=== PATIENT | female | born 1935 | race Caucasian/White ===

== ENCOUNTER 2017-04-10 08:39 | Emergency (ER) | payer MEDICARE, OTHER ==
[~2017-04-10] VITALS: Ht 157.5 cm; Wt 75.1 kg
[~2017-04-10 08:39] MED LIST: ATOR40TA68 PO; CALC500T12 PO; CIPR500T4 PO; GLIP5TAB13 PO; METO-448 PO; NIFE30TA PO; PIOG15TA12 PO
[2017-04-10 08:42] VITALS: Ht 157.5 cm; Wt 75.1 kg
--- NOTE | 2017-04-10 09:35 | ERD ---
ER Documentation Chief Complaint Chief Complaint cough , cold , body ache , fever x 3 days HPI 81-year-old female, with history of hypertension, diabetes, presents to the emergency department complaining of worsening upper respiratory symptoms during the last 3 days. The symptoms include persistent productive cough of greenish sputum, associated with chest congestion, runny nose, body aches and general malaise. The patient has been taking [id number] medication without improvement of the symptoms. She also complaints of subjective fever at home. Denies chills, shortness of breath, chest pain, palpitations, dizziness. ROS A 12-point review of systems was performed and negative other than presented in the history of present illness. SYSTEMIC symptoms: no fever, chills, no night sweats, no weight loss EYE symptoms: No blurred vision, no eye discharge OTOLARYNGEAL symptoms: No hearing loss. No ear pain, no sore throat CARDIOVASCULAR symptoms: No chest pain or discomfort, no palpitations. PULMONARY symptoms: No dyspnea, no cough, no wheezing. GASTROINTESTINAL symptoms: No abdominal pain, no nausea, no vomiting, no diarrhea MUSCULOSKELETAL symptoms: No arthralgias, no muscle aches. NEUROLOGY symptoms: No confusion, no syncope, no numbness or tingling. SKIN: No rashes Medications Home Meds Active Scripts Guaifenesin-Codeine Phosphate* (Guaifenesin* AC Cough Syrup) 473 Ml Liquid, 5 ML PO QHS Y for COUGH for 5 Days, #120 ML Prov:SANJUANITA DUKE MD 04/10/17 Amoxicillin* (Amoxicillin*) 500 Mg Cap, 500 MG PO TID for 7 Days, CAP Prov:SANJUANITA DUKE MD 04/10/17 Ciprofloxacin Hcl* (Ciprofloxacin Hcl*) 500 Mg Tablet, 500 MG PO BID for 7 Days , TAB Prov:STEPHANIE CHIN 04/13/16 Reported Medications Glipizide* (Glipizide*) 5 Mg Tablet, 2.5 MG PO DAILY, TAB 04/18/16 Atorvastatin* (Atorvastatin*) 40 Mg Tablet, 40 MG PO daily 09/24/12 Nifedipine* (Afeditab CR*) 30 Mg Tablet.sa, 30 MG PO BID 11/22/10 Calcium Carbonate* (Oysco-500*) 1 Tab Tablet, 1 TAB PO TID 11/22/10 Metoprolol Tartrate* (Lopressor*) 25 Mg Tab, 25 MG PO BID 11/22/10 Pioglitazone Hcl* (Actos*) 15 Mg Tablet, 15 MG PO DAILY 11/22/10 Allergies Allergies: Coded Allergies: No Known Allergy (Verified , 04/18/16) PMhx/Soc History of Surgery: Yes (gallbladder removed 20 years ago) Anesthesia Reaction: No Hx Neurological Disorder: Yes (CVA) Hx Respiratory Disorders: No Hx Cardiac Disorders: Yes (HTN, high cholesterol) Hx Psychiatric Problems: No Hx Miscellaneous Medical Probl: Yes (DM) Hx Alcohol Use: No Hx Substance Use: No Hx Tobacco Use: Yes Smoking Status: Never smoker Physical Exam Vitals Vital Signs Date Time Temp Pulse Resp B/P Pulse Ox O2 Delivery O2 Flow Rate FiO2 04/10/17 08:42 97.1 90 18 178/90 97 Physical Exam Patient is in no acute distress, vital signs stable. Alert and fully oriented. EYES: PERRLA, EOMI, Sclera and conjunctiva appear normal. EARS: Canals clear, tympanic membranes WNL THROAT: Normal oropharynx. NECK: Supple, No lymphadenopathy. Full ROM without pain or tenderness. HEART: RRR, no rubs, murmurs, clicks or gallops. LUNGS: Productive cough here, bilateral rhonchi ABDOMEN: Soft, non-tender without masses or hepatosplenomegaly. EXTREMITIES: No edema bilaterally. BACK: Full ROM, no deformity, normal back exam NEURO: Cranial nerves grossly intact, no motor or sensory deficit Procedures/MDM 81-year-old female, with history of hypertension and diabetes, presents with worsening of respiratory symptoms. Vital signs stable, Physical exam revealed bilateral rhonchi Differential diagnosis include but not limited to: Respiratory infection bacterial/viral/fungal. Asthma/COPD, pneumonitis, allergies, GERD. Less likely pulmonary embolism, foreign body aspiration, cardiac related, aspiration pneumonia, malignancy. Physical examination and clinical presentation consistent most likely with bronchitis During the ED course the patient remained stable, no new complaints. Results and clinical impression discussed with patient who agrees with management. The patient is stable to be treated outpatient and will be discharged home with a Rx for amoxicillin for 7 days and guaifenesin with codeine, some side effects of prescribed medications (headache, rash, nausea, vomiting, diarrhea, drowsiness, habituation, bleeding, hypertension, interactions with other medications) were reviewed. The patient was instructed to follow up with the primary care provider in the next 48h. If symptoms persist, worsen or new symptoms develop, then patient should return to the ED immediately. Instructions explained and given directly by me to the patient in Tristanian with acknowledgment and demonstrated understanding. Disclaimer: Inadvertent spelling and grammatical errors are likely due to EHR/ dictation software use and do not reflect on the overall quality of patient care. Also, please note that the electronic time recorded on this note does not necessarily reflect the actual time of the patient encounter. Departure Diagnosis: Primary Impression: Cough Additional Impression: Abnormal respiratory sounds Additional Instructions: Muchas trudi por [facility] para justin servicio. Esperamos que en justin visita a la alyssa de emergencia justin problema medico haya sido solucionado y que se sienta mucho mejor. Para estar seguros que justin mejoria sigue en proceso, le pedimos el favor de hacer cal bear de seguimiento medico con justin doctor primario en los proximos 2-4 jeffrey. Lleve con usted estos documentos y las medicinas recetadas. Si lo sintomas empeoran y no puede caleb a justin doctor, por favor regrese a alyssa de emergencia. En maria que usted no tenga un mdico de atencin primaria: Llame al mdico o clnica comunitaria de referencia que aparece abajo melinda las horas de consultorio para hacer cal bear para que le vean. CLINICAS: [facility] [phone] [facility] [phone] [facility] [phone] [facility] [id number] [place] [id number] [phone] [facility]. [phone] SANJUANITA HENSON MD Apr 10, 2017 09:35
[2017-04-10] MEDS ORDERED: GUAI473L22 PO (09:37)
[2017-04-10] MEDS ORDERED: AMOX500C2 PO (09:37)
== END 2017-04-10 09:56 | disposition home or self-care (01) ==
LOC: FTE 08:39
DX: R05 Cough (principal); R06.89 Other abnormalities of breathing; I10 Essential (primary) hypertension; E11.9 Type 2 diabetes mellitus without complications; Z79.84 Long term (current) use of oral hypoglycemic drugs; Z87.891 Personal history of nicotine dependence
CPT/HCPCS: 99283

== ENCOUNTER 2018-10-21 14:52 | Emergency (ER) | payer MEDICARE, OTHER ==
[~2018-10-21] VITALS: Ht 160 cm; Wt 67.3 kg
[~2018-10-21 14:52] MED LIST changes: +AMOX500C2 PO; +GUAI473L22 PO; -NIFE30TA PO; +NIFE30TA29 PO
[2018-10-21 14:57] VITALS: Ht 160 cm; Wt 67.3 kg
--- NOTE | 2018-10-21 15:22 | ERD ---
ER Documentation Chief Complaint Chief Complaint DIZZINESS, FATIGUE, DECREASED APPETITE X4 DAYS HPI This is an 83-year-old woman complaining of a few days of dizziness, generalized weakness, decreased appetite. Patient denies vomiting or diarrhea, no hematuria, no complaints of chest pain or shortness of breath, no loss of consciousness, no weakness in her arms or legs, no slurred speech. ROS All systems reviewed and are negative except as per history of present illness. Medications Home Meds Active Scripts Ondansetron Hcl* (Zofran*) 4 Mg Tablet, 4 MG PO Q8H PRN for NAUSEA AND/OR VOMITING, #30 TAB Prov:GEGE LINDSEY MD 10/21/18 Cephalexin* (Keflex*) 500 Mg Capsule, 500 MG PO QID for 5 Days, CAP Prov:GEGE LINDSEY MD 10/21/18 Reported Medications Pioglitazone Hcl* (Actos*) 15 Mg Tablet, 15 MG PO DAILY, #30 TAB 10/21/18 Nifedipine* (Afeditab CR*) 30 Mg Tablet.sa, 30 MG PO BID, #30 TAB.SA 10/21/18 Metoprolol Tartrate* (Lopressor*) 25 Mg Tab, 25 MG PO BID, #60 TAB 10/21/18 Glipizide* (Glipizide*) 5 Mg Tablet, 10 MG PO BID, TAB 10/21/18 Atorvastatin* (Atorvastatin*) 40 Mg Tablet, 40 MG PO QHS, #30 TAB 10/21/18 Discontinued Reported Medications Glipizide* (Glipizide*) 5 Mg Tablet, 2.5 MG PO DAILY, TAB 04/18/16 Atorvastatin* (Atorvastatin*) 40 Mg Tablet, 40 MG PO daily 09/24/12 Nifedipine* (Afeditab CR*) 30 Mg Tablet.sa, 30 MG PO BID 11/22/10 Calcium Carbonate* (Oysco-500*) 1 Tab Tablet, 1 TAB PO TID 11/22/10 Metoprolol Tartrate* (Lopressor*) 25 Mg Tab, 25 MG PO BID 11/22/10 Pioglitazone Hcl* (Actos*) 15 Mg Tablet, 15 MG PO DAILY 11/22/10 Discontinued Scripts Guaifenesin-Codeine Phosphate* (Guaifenesin* AC Cough Syrup) 473 Ml Liquid, 5 ML PO QHS PRN for COUGH for 5 Days, #120 ML Prov:SANJUANITA DUKE MD 04/10/17 Amoxicillin* (Amoxicillin*) 500 Mg Cap, 500 MG PO TID for 7 Days, CAP Prov:SANJUANITA DUKE MD 04/10/17 Ciprofloxacin Hcl* (Ciprofloxacin Hcl*) 500 Mg Tablet, 500 MG PO BID for 7 Days, TAB Prov:STEPHANIE CHINYesenia 04/13/16 Allergies Allergies: Coded Allergies: No Known Allergy (Verified , 10/21/18) PMhx/Soc hypertension, diabetes mellitus type 2, hyperlipidemia and non-obstructive coronary artery disease status post cardiac cath and negative lexicon stress History of Surgery: Yes (gallbladder removed 20 years ago) Anesthesia Reaction: No Hx Neurological Disorder: Yes (CVA) Hx Respiratory Disorders: No Hx Cardiac Disorders: Yes (HTN, high cholesterol) Hx Psychiatric Problems: No Hx Miscellaneous Medical Probl: Yes (DM) Hx Alcohol Use: No Hx Substance Use: No Hx Tobacco Use: Yes FmHx Family History: No diabetes Physical Exam Vitals Vital Signs Date Temp Pulse Resp B/P (MAP) Pulse Ox O2 O2 Flow FiO2 Time Delivery Rate 10/21/18 98.0 81 14 150/73 95 Room Air 17:30 (98) 10/21/18 97.5 84 16 162/82 98 14:57 (108) Physical Exam GENERAL: Well-developed, well-nourished, well-hydrated, in no apparent distress, looks nontoxic in appearance HEENT: Moist mucous membranes, pink conjunctiva, no cervical spine tenderness or step-off deformities, no goiter, no jaundice or icterus, extraocular movements intact without pain. No submandibular induration, and no pharyngeal erythema NEURO: Alert and oriented 3, cranial nerves II through XII intact bilaterally, pupils equal round reactive to light, no focal deficits or facial asymmetry, sensation intact distally Strength 5/5 in upper and lower extremities bilat erally CARDIAC: Regular rate and rhythm, no murmurs rubs or gallops LUNGS: Clear bilaterally no wheezing crackles or stridor ABDOMEN: Soft nontender, no guarding, no rigidity, no rebound, no psoas sign no obturator sign. Normoactive bowel sounds SKIN: Warm and dry to touch, no abrasions, contusions, or hematomas, no lacerations, no ecchymosis, no target lesions, and without ulcers EXTREMITIES: No clubbing cyanosis or edema, calves are bilaterally symmetrical, no Homans sign, no popliteal cord sign. Distal pulses equal and bilateral PSYCH: Normal affect without agitation or irritability Result Diagram: 10/21/18 1601 10/21/18 1601 Results 24 hrs Laboratory Tests Test 10/21/18 16:01 10/21/18 16:17 White Blood Count 5.5 10^3/ul Red Blood Count 4.80 10^6/ul Hemoglobin 14.9 g/dl Hematocrit 44.1 % Mean Corpuscular Volume 91.9 fl Mean Corpuscular Hemoglobin 31.0 pg Mean Corpuscular Hemoglobin Concent 33.8 g/dl Red Cell Distribution Width 12.9 % Platelet Count 249 10^3/UL Mean Platelet Volume 11.5 fl Immature Granulocytes % 0.400 % Neutrophils % 63.4 % Lymphocytes % 24.3 % Monocytes % 9.6 % Eosinophils % 1.8 % Basophils % 0.5 % Nucleated Red Blood Cells % 0.0 /100WBC Immature Granulocytes # 0.020 10^3/ul Neutrophils # 3.5 10^3/ul Lymphocytes # 1.3 10^3/ul Monocytes # 0.5 10^3/ul Eosinophils # 0.1 10^3/ul Basophils # 0.0 10^3/ul Nucleated Red Blood Cells # 0.0 10^3/ul Sodium Level 141 mmol/L Potassium Level 3.0 mmol/L Chloride Level 104 mmol/L Carbon Dioxide Level 24 mmol/L Anion Gap 13 Blood Urea Nitrogen 13 mg/dl Creatinine 0.45 mg/dl Est Glomerular Filtrat Rate mL/min mL/min Glucose Level 339 mg/dl Calcium Level 9.3 mg/dl Total Bilirubin 0.7 mg/dl Direct Bilirubin 0.00 mg/dl Indirect Bilirubin 0.7 mg/dl Aspartate Amino Transf (AST/SGOT) 24 IU/L Alanine Aminotransferase (ALT/SGPT) 38 IU/L Alkaline Phosphatase 146 IU/L Troponin I < 0.012 ng/ml Total Protein 7.2 g/dl Albumin 4.0 g/dl Globulin 3.20 g/dl Albumin/Globulin Ratio 1.25 Lipase 80 U/L Urine Color YELLOW Urine Clarity CLOUDY Urine pH 5.0 Urine Specific [place] 1.036 Urine Ketones 1+ mg/dL Urine Nitrite POSITIVE mg/dL Urine Bilirubin NEGATIVE mg/dL Urine Urobilinogen NEGATIVE mg/dL Urine Leukocyte Esterase 2+ Shey/ul Urine Microscopic RBC 48 /HPF Urine Microscopic WBC 31 /HPF Urine Squamous Epithelial Cells MANY /HPF Urine Bacteria MANY /HPF Urine Hemoglobin NEGATIVE mg/dL Urine Glucose 3+ mg/dL Urine Total Protein NEGATIVE mg/dl Current Medications Medications Dose Sig/Chris Start Time Status Last (Trade) Ordered Route PRN Stop Time Admin Dose Reason Admin Sodium 500 ml @ Q1H STAT 10/21/18 DC 10/21/18 Chloride 500 mls/hr IV 15:45 16:14 10/21/18 16:44 Ondansetron 4 mg ONCE STAT 10/21/18 DC 10/21/18 HCl (Zofran IV 15:45 16:14 Inj) 10/21/18 15:50 Ceftriaxone 50 ml @ ONCE ONCE 10/21/18 DC 10/21/18 Sodium 100 mls/hr IVPB 17:00 17:29 10/21/18 17:29 Procedures/MDM IV line was established patient was placed on hand tier rhythm strip revealed a sinus rhythm at about 80 bpm with upright P and T waves. Patient was afebrile EKG performed, read by me revealed a normal sinus rhythm at 77 bpm, normal axis, left ventricular conduction delay QRS duration 108 ms, prolonged QT of 511 ms, no concerning ST elevations or depressions noted CBC and electrolytes are normal, liver function tests were normal, troponin was negative. I administered 1 L normal saline IV and Zofran 4 mg IV for dizziness. Urinalysis was positive for infection I treated her here with ceftriaxone 1 g IV Differential diagnoses considered, included but not limited to acute coronary syndrome, pulmonary embolism, aortic dissection, abdominal aortic aneurysm, sepsis, stroke, meningitis, encephalitis, pneumonia, appendicitis, cholecysti tis, bowel obstruction, pyelonephritis, nephrolithiasis, cystitis, as well as metabolic, hematologic, and electrolyte abnormalities. As well as abscess, cellulitis, fractures, and dislocations. Patient feels much better at this time, and vital signs are normal, symptoms have improved. I did give strict instructions to return to the ED if symptoms continue or worsen, patient will otherwise follow-up with primary care physician. Patient understood instructions and agreed to plan. Disclaimer: Inadvertent spelling and grammatical errors are likely due to EHR/dictation software use and do not reflect on the overall quality of patient care. Also, please note that the electronic time recorded on this note does not necessarily reflect the actual time of the patient encounter. Departure Diagnosis: Primary Impression: Dizziness Additional Impression: Acute UTI Condition: Good GEGE LINDSEY MD Oct 21, 2018 15:21
[2018-10-21] MEDS ORDERED: SOD CHLORIDE 0.9% 500 ML IV STA (15:45)
[2018-10-21] MEDS ORDERED: ONDANSETRON 4 MG INJ IV STA (15:45)
[2018-10-21] MEDS ORDERED: ATOR40TA68 PO (15:55)
[2018-10-21] MEDS ORDERED: METO-448 PO (15:56)
[2018-10-21] MEDS ORDERED: GLIP5TAB13 PO (15:56)
[2018-10-21] MEDS ORDERED: PIOG15TA12 PO (15:57)
[2018-10-21] MEDS ORDERED: NIFE30TA29 PO (15:57)
[2018-10-21] MEDS ORDERED: CEFTRIAXONE 1 GM/50 ML (PMX) 50 ML IVPB ONE (17:00)
[2018-10-21] MEDS ORDERED: ONDA4TAB8 PO (17:40)
[2018-10-21] MEDS ORDERED: CEPH-443 PO (17:40)
[2018-10-21 18:35] VITALS: BP 154/86; PULSE 83; RESP 20
== END 2018-10-21 18:45 | disposition home or self-care (01) ==
LOC: E/R 14:52
DX: R42 Dizziness and giddiness (principal); N39.0 Urinary tract infection, site not specified; I10 Essential (primary) hypertension; E11.9 Type 2 diabetes mellitus without complications; I25.10 Atherosclerotic heart disease of native coronary artery without angina pectoris; Z79.84 Long term (current) use of oral hypoglycemic drugs; Z86.73 Personal history of transient ischemic attack (TIA), and cerebral infarction without residual deficits; Z87.891 Personal history of nicotine dependence
CPT/HCPCS: 80053; 81001; 83690; 84484; 85025; J0696; J2405; J7040; 36415; 93005; 96374; 96375

== ENCOUNTER 2018-11-02 16:02 | Emergency (ER) | payer MEDICARE, OTHER ==
[~2018-11-02] VITALS: Wt 67.1 kg
[~2018-11-02 16:02] MED LIST changes: -AMOX500C2 PO; -CALC500T12 PO; +CEPH-443 PO; -CIPR500T4 PO; -GUAI473L22 PO; +ONDA4TAB8 PO
[2018-11-02 16:41] VITALS: Wt 67.1 kg
[2018-11-02] MEDS ORDERED: SOD CHLORIDE 0.9% 1,000 ML IV STA (20:22)
[2018-11-02] MEDS ORDERED: CEFTRIAXONE 1 GM/50 ML (PMX) 50 ML IVPB ONE (22:00)
[2018-11-02 22:46] VITALS: BP 148/88; PULSE 77; RESP 14
[2018-11-02] MEDS ORDERED: NITR-58 PO (22:52)
[2018-11-02] MEDS ORDERED: MENT71OI TP (22:52)
--- NOTE | 2018-11-03 00:39 | ERD ---
ER Documentation Chief Complaint Chief Complaint BLOOD SUGAR 580 AT HOME HPI 83-year-old female brought in by family for hyperglycemia today. She also complains of dysuria and diaper rash. No nausea or vomiting. Denies any associated abdominal pain, diarrhea, fevers, chills. She is only on oral medications for diabetes. Her blood sugars normally range within the 200s to 300s. Today it was 580 at home which worried them. ROS All systems reviewed and are negative except as per history of present illness. Medications Home Meds Active Scripts Menthol/Zinc Oxide (Calmoseptine Ointment) 71 Gm Oint..gm., 1 APPLIC TP QID PRN for WITH DIAPER CHANGES, #1 TUB Prov:LEAH SULTANA MD 11/02/18 Nitrofurantoin Monohyd Macrocr* (Macrobid*) 100 Mg Capsr, 100 MG PO BID for 7 Days, CAP Prov:LEAH SULTANA MD 11/02/18 Ondansetron Hcl* (Zofran*) 4 Mg Tablet, 4 MG PO Q8H PRN for NAUSEA AND/OR VOMITING, #30 TAB Prov:GEGE LINDSEY MD 10/21/18 Cephalexin* (Keflex*) 500 Mg Capsule, 500 MG PO QID for 5 Days, CAP Prov:GEGE LINDSEY MD 10/21/18 Reported Medications Pioglitazone Hcl* (Actos*) 15 Mg Tablet, 15 MG PO DAILY, #30 TAB 10/21/18 Nifedipine* (Afeditab CR*) 30 Mg Tablet.sa, 30 MG PO BID, #30 TAB.SA 10/21/18 Metoprolol Tartrate* (Lopressor*) 25 Mg Tab, 25 MG PO BID, #60 TAB 10/21/18 Glipizide* (Glipizide*) 5 Mg Tablet, 10 MG PO BID, TAB 10/21/18 Atorvastatin* (Atorvastatin*) 40 Mg Tablet, 40 MG PO QHS, #30 TAB 10/21/18 Allergies Allergies: Coded Allergies: No Known Allergy (Verified , 11/02/18) PMhx/Soc History of Surgery: Yes (gallbladder removed 20 years ago) Anesthesia Reaction: No Hx Neurological Disorder: Yes (CVA) Hx Respiratory Disorders: No Hx Cardiac Disorders: Yes (HTN, high cholesterol) Hx Psychiatric Problems: No Hx Miscellaneous Medical Probl: Yes (DM) Hx Alcohol Use: No Hx Substance Use: No Hx Tobacco Use: No Smoking Status: Never smoker FmHx Family History: No diabetes Physical Exam Vitals Vital Signs Date Temp Pulse Resp B/P (MAP) Pulse Ox O2 O2 Flow FiO2 Time Delivery Rate 11/02/18 98.0 77 14 148/88 99 Room Air 22:46 (108) 11/02/18 98.6 20:23 11/02/18 78 16 154/98 100 Room Air 20:05 (116) 11/02/18 79 20 153/76 98 16:41 (101) Physical Exam Const: No acute distress Head: Atraumatic Eyes: Normal Conjunctiva ENT: Normal External Ears, Nose and Mouth. Neck: Full range of motion. No meningismus. Resp: Clear to auscultation bilaterally Cardio: Regular rate and rhythm, no murmurs Abd: Soft, non tender, non distended. Normal bowel sounds : Erythematous rash to groin, external genitalia, and buttocks with no evidence of candidal infection Skin: No petechiae or rashes Back: No midline or flank tenderness Ext: No cyanosis, or edema Neur: Awake and alert Psych: Normal Mood and Affect Result Diagram: 11/02/18194811/02/181948 Results 24 hrs Laboratory Tests Test 11/02/18 19:44 11/02/18 19:49 Bedside Glucose 291 mg/dL White Blood Count 5.7 10^3/ul Red Blood Count 5.09 10^6/ul Hemoglobin 15.7 g/dl Hematocrit 45.7 % Mean Corpuscular Volume 89.8 fl Mean Corpuscular Hemoglobin 30.8 pg Mean Corpuscular Hemoglobin Concent 34.4 g/dl Red Cell Distribution Width 12.8 % Platelet Count 252 10^3/UL Mean Platelet Volume 11.9 fl Immature Granulocytes % 0.400 % Neutrophils % 54.4 % Lymphocytes % 32.2 % Monocytes % 8.8 % Eosinophils % 3.7 % Basophils % 0.5 % Nucleated Red Blood Cells % 0.0 /100WBC Immature Granulocytes # 0.020 10^3/ul Neutrophils # 3.1 10^3/ul Lymphocytes # 1.8 10^3/ul Monocytes # 0.5 10^3/ul Eosinophils # 0.2 10^3/ul Basophils # 0.0 10^3/ul Nucleated Red Blood Cells # 0.0 10^3/ul Urine Color YELLOW Urine Clarity SLIGHTLY CLOUDY Urine pH 6.0 Urine Specific [place] 1.033 Urine Ketones TRACE mg/dL Urine Nitrite POSITIVE mg/dL Urine Bilirubin NEGATIVE mg/dL Urine Urobilinogen NEGATIVE mg/dL Urine Leukocyte Esterase 2+ Shey/ul Urine Microscopic RBC 4 /HPF Urine Microscopic WBC 16 /HPF Urine Squamous Epithelial Cells FEW /HPF Urine Bacteria FEW /HPF Urine Yeast (Budding) MANY /HPF Urine Hemoglobin NEGATIVE mg/dL Urine Glucose 3+ mg/dL Urine Total Protein NEGATIVE mg/dl Sodium Level 139 mmol/L Potassium Level 3.9 mmol/L Chloride Level 102 mmol/L Carbon Dioxide Level 24 mmol/L Anion Gap 13 Blood Urea Nitrogen 14 mg/dl Creatinine 0.49 mg/dl Est Glomerular Filtrat Rate mL/min mL/min Glucose Level 328 mg/dl Calcium Level 9.9 mg/dl Current Medications Medications Dose Sig/Chris Start Time Status Last (Trade) Ordered Route PRN Stop Time Admin Dose Reason Admin Sodium 1,000 ml @ Q1H STAT 11/02/18 DC 11/02/18 Chloride 1,000 mls/hr IV 20:22 11/02/18 20:36 21:21 Ceftriaxone 50 ml @ ONCE ONCE 11/02/18 DC 11/02/18 Sodium 100 mls/hr IVPB 22:00 11/02/18 21:56 22:29 Procedures/MDM EMERGENT LABS AND DIAGNOSTIC STUDIES: Lab Results above were reviewed and interpreted by me. CBC: no anemia or evidence of infection BMP: Hyperglycemic. [no e/o clinically significant electrolyte abnormality severe acidosis, alkalosis, renal failure, diabetic ketoacidosis] UA: + evidence of infection Initial Nursing notes reviewed. Previous Medical Records requested via the Electronic Health Record. EMERGENCY DEPARTMENT COURSE / MEDICAL DECISION MAKING: Patient is presenting with hyperglycemia and dysuria with evidence of diaper rash on exam. Vitals are unremarkable. She is hyperglycemic but has no evidence of acidosis. She was treated with IV fluids and IV antibiotics as she was found to have a UTI. She is stable for discharge and will be discharged with a prescription for Macrobid as well as calmoseptine for her rash. Frequent diaper changes were discussed. Return precautions given. Follow-up with PCP recommended for her uncontrolled hyperglycemia despite taking her medications regularly. Patient's blood pressure was elevated (>120/80) but appears stable without evidence of hypertensive emergency or urgency. The patient was counseled about the risks of hypertension and urged to pursue outpatient monitoring and therapy within a week with their primary care physician. Departure Diagnosis: Primary Impression: Diabetes type 2, uncontrolled Glycemic state: with hyperglycemia Qualified Codes: E11.65 - Type 2 diabetes mellitus with hyperglycemia Additional Impressions: Diaper rash UTI (urinary tract infection) Urinary tract infection type: acute cystitis Hematuria presence: without hematuria Qualified Codes: N30.00 - Acute cystitis without hematuria Condition: Stable Patient Instructions: Hyperglycemia (High Blood Sugar), Understanding Urinary Tract Infections (UTIs), Dirty Diapers and Diaper Rash LEAH SULTANA MD Nov 03, 2018 00:39
== END 2018-11-02 22:58 | disposition home or self-care (01) ==
LOC: E/R 16:02
DX: E11.65 Type 2 diabetes mellitus with hyperglycemia (principal); I10 Essential (primary) hypertension; N30.00 Acute cystitis without hematuria; L22 Diaper dermatitis; Z79.84 Long term (current) use of oral hypoglycemic drugs; Z86.73 Personal history of transient ischemic attack (TIA), and cerebral infarction without residual deficits
CPT/HCPCS: 36415; 80048; 81001; 82962; 85025; 87086; 96374; 99284; J0696; J7030